=== PATIENT | female | born 1965 | race American Indian/Alaskan Native ===

== ENCOUNTER 2021-03-16 10:27 | Emergency (ER) | payer OTHER ==
--- NOTE | 2021-03-16 11:11 | Event Note ---
ED Screening Note Date of service: 03/16/21 Time: 11:09 ED Screening Note: This 55-year-old diabetic female presents to the ED for hypoglycemia. Fingerstick 350. Patient states that her blood sugar was 500s at the urgent care where she was sent here. This initial assessment/diagnostic orders/clinical plan/treatment(s) is/are subject to change based on patients health status, clinical progression and re- assessment by fellow clinical providers in the ED. Further treatment and workup at subsequent clinical providers discretion. Patient/guardian urged not to elope from the ED as their condition may be serious if not clinically assessed and managed. Initial orders include: Labs ordered. IV fluids,
== END 2021-03-16 11:40 | disposition left against medical advice (07) ==
LOC: ED 10:27
DX: E11.65 Type 2 diabetes mellitus with hyperglycemia (principal); Z53.21 Procedure and treatment not carried out due to patient leaving prior to being seen by health care provider
CPT/HCPCS: 82962